=== PATIENT | female | born 1960 | race African-American/Black ===

== ENCOUNTER 2017-10-24 21:55 | Inpatient (IN) | payer OTHER ==
[~2017-10-24] VITALS: Ht 165.1 cm; Wt 60.8 kg
--- NOTE | 2017-10-24 21:55 | NUR ---
"SLIPPED AND FELL HEADING TO RESTROOM; MY CHEST/LT HAND AND HEAD HURT" DENIES KO. NAD NOTED, VSS, RESP EVEN AND UNLABORED, PT WAS PUT ON MONITOR, MD AT BS.
[2017-10-24] MEDS ORDERED: KETOROLAC TROMETHAMINE INJ 30 MG/ML VIAL ONE (22:17)
[2017-10-24 22:28] LABS: BASOPHILS % (AUTO) 0.5 % (0.0-2.0); HEMATOCRIT 38 % (33-45); HEMOGLOBIN 12.4 g/dL (11.5-14.8); LYMPHOCYTES # (AUTO) 3.1 /CMM (0.8-4.8); LYMPHOCYTES % (AUTO) 33.1 % (20.0-44.0); MEAN CORPUSCULAR HEMOGLOBIN 28 PG (26.0-33.0); MEAN CORPUSCULAR HGB CONC 33 g/dl (31.0-36.0); MEAN CORPUSCULAR VOLUME 84 fL (82-100); MONOCYTES # (AUTO) 0.7 /CMM (0.1-1.30); MONOCYTES % (AUTO) 7.8 % (2.0-12.0); NEUTROPHILS # (AUTO) 5.5 /CMM (1.8-8.9); NEUTROPHILS % (AUTO) 57.6 % (43.0-81.0); PLATELET COUNT (AUTO) 248 /CMM (150-450); RDW COEFFICIENT OF VARIATION 13.8 (11.5-15.0); WHITE BLOOD COUNT (AUTO) 9.5 K/uL (4.3-11.0)
[2017-10-24] MEDS ORDERED: KETOROLAC TROMETHAMINE INJ 30 MG/ML VIAL IV ONE (22:30)
[2017-10-24 22:42] LABS: CALCIUM, SERUM 9.5 mg/dL (8.5-10.1); CARBON DIOXIDE 23 mmol/L (21-32); CHLORIDE 98 mmol/L (98-107); CREATININE 1.3 mg/dL (0.6-1.3); GLUCOSE 242 mg/dL (74-106); POTASSIUM 3.2 mmol/L (3.5-5.1); SODIUM SERUM 130 mmol/L (136-145); UREA NITROGEN, BLOOD 32 mg/dL (7-18)
[2017-10-24 22:46] LABS: INR 0.96 (0.87-1.13)
[2017-10-24 22:51] LABS: TROPONIN I < 0.017 ng/mL (0.00-0.056)
--- NOTE | 2017-10-24 22:55 | NUR ---
Patient is resting comfortably in bed with eyes closed. Easily aroused. VSS
[2017-10-24 22:56] LABS: B-TYPE NATRIURETIC PEPTIDE 136 PG/ML (0-125)
--- NOTE | 2017-10-25 00:02 | NUR ---
report given to telephone order clerk room serviceadrian andino for sherry
--- NOTE | 2017-10-25 00:20 | NUR ---
PT STATES SHE IS UNABLE TO RECALL HER LIST OF MEDICATIONS SHE DID NOT BRING IT WITH HER.
--- NOTE | 2017-10-25 00:38 | NUR ---
pt transferred to 3w via [facility] acls protocol.
[2017-10-25] MEDS ORDERED: ONDANSETRON HCL/PF 4 MG/2 ML VIAL IVP PRN (01:00)
[2017-10-25] MEDS ORDERED: Z GUARD REMEDY 2 OZ OINT TP PRN (01:00)
[2017-10-25] MEDS ORDERED: HYDROCODONE/APAP 5/325MG 1 EACH TABLET PO PRN (01:00)
[2017-10-25] MEDS ORDERED: MAG HYDROX/AL HYDROX/SIMETH 30 ML UDC PO PRN (01:00)
[2017-10-25] MEDS ORDERED: ACETAMINOPHEN 325 MG TABLET PO PRN (01:00)
[2017-10-25] MEDS ORDERED: ZOLPIDEM TARTRATE 5 MG TABLET PO PRN (01:00)
[2017-10-25] MEDS ORDERED: MAGNESIUM HYDROXIDE 30 ML UDC PO PRN (01:00)
--- NOTE | 2017-10-25 01:15 | NUR ---
VETERINARY NURSE NOTES PT ARRIVED ONTO THE UNIT AT 0035 VIA GURNEY. PT COMPLAINS OF FALLING ON HER WAY TO THE BATHROOM AT @2000 AND CHEST PAIN. NO COMPLAINTS OF CHEST PAIN AT THIS TIME WILL CONTINUE TO MONITOR. 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 PT ALSO STATES THAT SHE HAS HAD "6 STROKES". PT TELE MONITORED NSR RATE OF 70. ALL PT BELONGINGS ACCOUNTED FOR AND DOCUMENT. PT ORIENTED TO THE USE OF THE CALL LIGHT. SAFETY PRECAUTIONS IN PLACE, BED IN LOWEST LOCKED POSITION, X2 SIDE RAILS UP, AND CALL LIGHT WITHIN REACH. WILL ENDORSE TO DAY SHIFT NURSE FOR CONTINUITY OF CARE.
[2017-10-25] MEDS ORDERED: ASPI-1169 PO (01:26)
[2017-10-25] MEDS ORDERED: CLOP75TA15 PO (01:26)
[2017-10-25] MEDS ORDERED: METO-356 PO (01:26)
[2017-10-25] MEDS ORDERED: TRAZ-147 PO (01:26)
[2017-10-25] MEDS ORDERED: LISI10TA5 PO (01:26)
[2017-10-25] MEDS ORDERED: ATOR20TA PO (01:26)
[2017-10-25] MEDS ORDERED: SERT50TA PO (01:26)
--- NOTE | 2017-10-25 01:30 | NUR ---
RN NOTES PT STATED HOME MEDICATIONS AND DOSE AMOUNTS. WILL UPDATE HOME MEDICATION RECONCILIATION AND INFORM DR BELTRÁN.
[2017-10-25] MEDS: IV NS 0.9% 1,000 ML IV PRN ×2 (02:09→15:56)
[2017-10-25] MEDS: MORPHINE SULFATE INJ 2 MG/ML DISP.SYRIN IV PRN ×2 (02:09→08:49)
--- NOTE | 2017-10-25 02:09 | NUR ---
RN NOTES PT IS COMPLAINING OF RIGHT EYE PAIN. PT REQUESTED PRN MORPHINE. WILL ADMINISTER AND CONTINUE TO MONITOR.
[2017-10-25 04:27] VITALS: BP 136/88
--- NOTE | 2017-10-25 04:30 | NUR ---
RN NOTES PAGED DR BELTRÁN FOR LAB VALUES: K-3.2 AND NA-130. AWAITING RESPONSE.
--- NOTE | 2017-10-25 05:03 | NUR ---
RN NOTES MESSAGED DR BELTRÁN VIA [employer] TEXT FOR LAB VALUES: K-3.2 AND NA-130. AWAITING RESPONSE.
--- NOTE | 2017-10-25 05:06 | NUR ---
RN NOTES SPOKE WITH DR BELTRÁN REGARDING LAB VALUES. PER DR BELTRÁN NO NEW ORDERS.
--- NOTE | 2017-10-25 05:15 | NUR ---
RN NOTES PT COMPLAINING OF GENERALIZED PAIN. PT REQUESTED PRN NORCO [phone]. WILL ADMINISTER AND CONTINUE TO MONITOR.
--- NOTE | 2017-10-25 06:43 | NUR ---
RN CLOSING NOTES PT RESTING IN BED. EASILY AROUSES. NO COMPLAINTS OF PAIN, DISTRESS OR SOB AT THIS TIME. NO COMPLAINTS OF CHEST PAIN. PT TELE MONITORED NSR RATE OF 70. PT HAS A LEFT AC #18 IV INTACT AND RUNNING NS @75ML/HR. SAFETY PRECAUTIONS IN PLACE, BED IN LOWEST LOCKED POSITION, X2 SIDE RAILS UP, AND CALL LIGHT WITHIN REACH. WILL ENDORSE TO DAY SHIFT NURSE FOR CONTINUITY OF CARE.
[2017-10-25 08:09] LABS: CHOLESTEROL 187 mg/dL (<200); HDL CHOLESTEROL 38 mg/dL (40-60); LDL 123 mg/dL (0-99); TRIGLYCERIDES 156 mg/dL (30-150)
[2017-10-25 08:11] LABS: TROPONIN I < 0.017 ng/mL (0.00-0.056)
[2017-10-25] MEDS: SERTRALINE HCL 50 MG TABLET PO SCH (08:30)
[2017-10-25] MEDS: CLOPIDOGREL BISULFATE 75 MG TABLET PO SCH (08:30)
[2017-10-25] MEDS: ATORVASTATIN 10 MG TABLET PO SCH (08:30)
[2017-10-25] MEDS: ASPIRIN 81 MG TAB.CHEW PO SCH (08:30)
[2017-10-25] MEDS: METOPROLOL SUCCINATE 25 MG TAB.SR.24H PO SCH (08:37)
[2017-10-25] MEDS: LISINOPRIL (10MG) 10 MG TABLET PO SCH (08:37)
--- NOTE | 2017-10-25 08:52 | NUR ---
HOTEL FRONT DESK AGENT NOTES PATIENT IN BED, BREAKFAST SERVED WITH FAIR APPETITE. BREATHING ROOM AIR WITH NO SOB. IVC IN LEFT AC WITH IVF NS INFUSING AT 75ML/HR. REPORTED RIGHT SHOULDER PAIN 8/10 NON RADIATING, MEDICATED WITH IV PRN MORPHINE, WILL REASSESS. CALL LIGHT WITHIN REACH. WILL CONT TO MONITOR.
[2017-10-25] MEDS ORDERED: ASPIRIN 81 MG TAB.CHEW PO SCH (09:00)
[2017-10-25] MEDS ORDERED: INSULIN REGULAR, HUMAN 100 UNIT/ML 3 ML VIAL SQ PRN (10:30)
[2017-10-25] MEDS ORDERED: DEXTROSE 50%-WATER 50 ML DISP.SYRIN IV PRN ×2 (10:30→16:30)
[2017-10-25 11:57] VITALS: BP 103/65
[2017-10-25] MEDS ORDERED: BLOOD SUGAR DIAGNOSTIC 1 EACH STRIP IN SCH (12:00)
[2017-10-25 13:48] LABS: THYROID STIMULATING HORMONE 0.954 uIU/mL (0.358-3.74)
[2017-10-25] MEDS ORDERED: POTASSIUM CHLORIDE 20 MEQ TAB.PRT.SR PO ONE (14:30)
--- NOTE | 2017-10-25 15:36 | NUR ---
PATIENT SUDDENLY AMBULATES AND WANTS TO SMOKE HOLDING BOX OF CIGARETTE, EDUCATED PATIENT, RISK AND BENEFITS EXPLAINED BUT INSISTED TO GO OUTSIDE HOSP TO SMOKE, REFUSED SMOKE CESSATION TEACHING. PATIENT STARTED WALKING THE HOSP HALLWAY AND THREATENS NURSES SHE WILL SMOKE INSIDE THE HOSP. IF STAFF DO NOT ALLOW HER TO SMOKE OUTSIDE, UNCONTROLLED AGITATION, SECURITY WAS CALLED AND ESCORT PATIENT TO GO BACK THE ROOM. PATIENT SMOKE INSIDE THE BATHROOM. NOTIFIED YOLIE ROMEO. RAVIN FROM [facility] WILL VISIT THE HOSP TO SPEAK TO THE PATIENT.
[2017-10-25] MEDS ORDERED: *INSULIN REGULAR(HUMULIN R)HUM 100 UNIT/ML VIAL SQ PRN (16:30)
[2017-10-25 16:45] VITALS: BP 100/63
--- NOTE | 2017-10-25 17:11 | NUR ---
PATIENT IN BED, REQUESTING PAIN MEDICATION MORPHINE OR NORCO. APPEARS COMFORTABLE, NO MOANING, NO FACIAL GRIMACE. PROVIDED MEDICATION INDICATION AND POSSIBLE SIDE EFFECT BUT PATIENT REFUSING TO LISTEN.
[2017-10-25] MEDS: BLOOD SUGAR DIAGNOSTIC 1 EACH STRIP VI SCH ×2 (17:25→21:36)
[2017-10-25] MEDS: INSULIN REGULAR, HUMAN 100 UNIT/ML 3 ML VIAL SQ PRN (17:29)
--- NOTE | 2017-10-25 18:20 | NUR ---
LIABILITY ANALYST CLOSING NOTES PATIENT IN BED, DINNER SERVED WITH GOOD APPETITE. BREATHING ON ROOM AIR WITH NO SOB. SINUS RHYTHM HR 74 ON THE TELE MONITOR, DENIES CHEST PAIN. IVC IN LEFT AC WITH IVF NS INFUSING AT 75ML/HR, LOW POTASSIUM 3.2 SUPPLEMENTED TODAY ORDERED. PER YOLIE ROMEO PATIENT CAN GO OUTSIDE TO SMOKE AFTER CLEARED BY CARDIOLOGY, AWAITING FOR CONSULT. CALL LIGHT WITHIN REACH. WILL ENDORSE TO ONCOMING RN.
--- NOTE | 2017-10-25 19:21 | NUR ---
MS RN OPENING NOTE RECEIVE PATIENT AWAKE IN BED, A/O X3, STABLE, NO FACIAL GRIMACING NOTED FOR PAIN. NO SOB OR DISTRESS NOTED, CALL LIGHT WITHIN REACH. SAFETY MEASURES IMPLEMENTED. WILL CONTINUE TO MONITOR THROUGHOUT SHIFT.
[2017-10-25 20:00] VITALS: BP 111/72
[2017-10-25] MEDS ORDERED: TRAZODONE 50 MG TABLET PO SCH (22:00)
--- NOTE | 2017-10-25 22:34 | NUR ---
Paged hospitalist spoke to ms. santiago relayed to her per pt doesnt want to go home right now pt wants to go home tomorrow morning ms. jonn chiang dc pt at 2009 late discharge pt sleepy per jorge she will text jonn chiang to inform her.
--- NOTE | 2017-10-25 22:49 | NUR ---
CALLED RAVIN GRADUATE INTERN OF [facility] MULTIPLE TIMES NOT ANSWERING LEFT A MESSAGE
--- NOTE | 2017-10-25 23:19 | NUR ---
SPOKE TO MS. BILL ROMEO RELAYED THAT THE [facility] IS NOT ANSWERING [phone] LEFT A MESSAGE CALLED MULTIPLE TIMES B&C. PER BILL SHE WILL CALL THE [facility]
--- NOTE | 2017-10-25 23:21 | NUR ---
CALLED IMPROVEMENT SPEC SPOKE TO MS. FREDDIE PAYNE RELAYED THAT MSAngel ROMEO FORCING THE PT TO GO HOME BUT [facility] NOT ANSWERING AWAITING CALL BACK LEFT A MESSAGE, CALLED MULTIPLE TIMES. PER MS. FRAZIER WE CANNOT DISCHARGE PT IN UNSAFE CONDITION PER PROTOCOL. CHARGE NURSE AWARE. PT WANTS TO GO HOME TOMORROW IN THE MORNING.
[2017-10-26] VITALS: BP 110/65
[2017-10-26 00:30] VITALS: BP 110/65
[2017-10-26 00:35] VITALS: BP 110/65
[2017-10-26] MEDS: BLOOD SUGAR DIAGNOSTIC 1 EACH STRIP VI SCH (05:43)
[2017-10-26] MEDS: INSULIN REGULAR, HUMAN 100 UNIT/ML 3 ML VIAL SQ PRN (05:45)
--- NOTE | 2017-10-26 06:07 | NUR ---
CALLED AGAIN RAVIN SENIOR CHEMICAL ENGINEER OF [facility] 3 TIMES UNABLE TO PICK MY CALLS CHARGE NURSE AWARE CANNOT D/C UNSAFE FOR THE PT
--- NOTE | 2017-10-26 06:09 | NUR ---
MS RN CLOSING NOTES IN BED ASLEEP AND EASILY AWAKEN, NO COMPLAINTS OF PAIN, DISTRESS OR SOB AT THIS TIME. NO COMPLAINTS OF CHEST PAIN. NURSING CARE RENDERED. NEEDS ATTENDED, AWAITING D/C. SAFETY PRECAUTIONS IN PLACE, BED IN LOWEST LOCKED POSITION, X2 SIDE RAILS UP, AND CALL LIGHT WITHIN REACH. WILL ENDORSE TO DAY SHIFT NURSE FOR CONTINUITY OF CARE.
--- NOTE | 2017-10-26 06:31 | NUR ---
RAVIN CALLED BACK AND REQUESTED IF THE PATIENT CAN COME AFTER 8 AM CHARGE NURSE AWARE RAVIN UNABLE TO SENIOR ANIMAL TRAINER PATIENT PATIENT REFUSED TO BE CHANGE NOW DESPITE AND EXPLAINING RISKS AND BENEFITS ASKED MULTIPLE TIMES PT REFUSED, PT ACCIDENTALLY PEE IN THE BED
[2017-10-26] MEDS ORDERED: PANTOPRAZOLE 40 MG TABLET.DR PO SCH (07:30)
--- NOTE | 2017-10-26 07:30 | NUR ---
MS RN NOTES PATIENT RECEIVED RESTING INSIDE ROOM, AWAKE, ALERT AND ORIENTED. VERBALLY RESPONSIVE AND RESPONDS TO VERBAL AND TACTILE STIMULI. BREATHING EVEN AND UNLABORED. NO SOB OR ACUTE DISTRESS NOTED AT THIS TIME. DISCUSSED WITH PATIENT DISCHARGE PLAN FOR TODAY AND PATIENT VERBALIZED THAT ITS OK FOR HER TO GO IN THE MORNING AFTER 0800. WILL CONTINUE TO MONITOR. BED LOCKED AND IN LOW POSITION. BILATERAL UPPER SIDE RAILS UP AND LOCKED. CALL LIGHT WITHIN EASY REACH
[2017-10-26] MEDS: CLOPIDOGREL BISULFATE 75 MG TABLET PO SCH (08:51)
[2017-10-26] MEDS: LISINOPRIL (10MG) 10 MG TABLET PO SCH (08:51)
[2017-10-26] MEDS: ATORVASTATIN 10 MG TABLET PO SCH (08:51)
[2017-10-26] MEDS: ASPIRIN 81 MG TAB.CHEW PO SCH (08:51)
[2017-10-26 08:52] VITALS: BP 121/79
[2017-10-26] MEDS: METOPROLOL SUCCINATE 25 MG TAB.SR.24H PO SCH (08:52)
[2017-10-26] MEDS: SERTRALINE HCL 50 MG TABLET PO SCH (08:52)
[2017-10-26] MEDS ORDERED: NICOTINE PATCH (14MG) 14 MG PATCH.TD24 TD SCH (09:00)
--- NOTE | 2017-10-26 11:00 | NUR ---
MS RN NOTES PLACED CALL TO [facility]' AND SPOKE WITH RAVIN ([phone]) MADE AWARE THAT PATIENT IS COMING BACK, REPORT GIVEN,
--- NOTE | 2017-10-26 11:25 | NUR ---
MS RN NOTES PATIENT FOR DISCHARGE TODAY. DISCHARGE INSTRUCTIONS AND EDUCATION GIVEN AND VERBALIZED UNDERSTANDING. ALL BELONGINGS COMPLETE, PATIENT DENIES ANY MISSING BELONGING OR INVENTORY. IV REMOVED WITH MINIMAL BLEEDING NOTED, PRESSURE DRESSING PLACED. PATIENT PROVIDED WITH TAXI VOUCHER FOR DISCHARGE. PATIENT ASSISTED OUTSIDE UNIT TO PARKING LOT. LEFT VIA [facility]AXI TO [facility] AND CARE, ADDRESS: [id number] [place] [address]. MD MADE AWARE OF DISCHARGE.
== END 2017-10-26 10:15 | disposition home or self-care (01) | DRG 198 ==
LOC: ER 21:56 → TELE 10-25 00:08 → MED 10-26 02:52
PROVIDERS: ADMIT Internal Medicine; ATTEND Internal Medicine
DX: R07.89 Other chest pain (principal); I25.10 Atherosclerotic heart disease of native coronary artery without angina pectoris; E87.1 Hypo-osmolality and hyponatremia; I10 Essential (primary) hypertension; E11.9 Type 2 diabetes mellitus without complications; E78.5 Hyperlipidemia, unspecified; E87.6 Hypokalemia; I69.954 Hemiplegia and hemiparesis following unspecified cerebrovascular disease affecting left non-dominant side; Z95.5 Presence of coronary angioplasty implant and graft; W06.XXXA Fall from bed, initial encounter; Y92.193 Bedroom in other specified residential institution as the place of occurrence of the external cause; Z79.82 Long term (current) use of aspirin; F32.9 Major depressive disorder, single episode, unspecified; F17.200 Nicotine dependence, unspecified, uncomplicated; Z71.6 Tobacco abuse counseling
CPT/HCPCS: 36415; 71045-TC; 80048-TC; 80061-TC; 82746; 82962-TC; 83880; 84443-TC; 84484-TC; 85025-TC; 85730-TC; 87081-TC; 93307-TC; A4606; J1815; J1885; J2270; J7030; Z7610

== ENCOUNTER 2017-12-22 17:45 | Emergency (ER) | payer OTHER ==
[~2017-12-22] VITALS: Ht 162.6 cm; Wt 67.6 kg
[~2017-12-22 17:45] MED LIST: ASPI-1169 PO; ATOR20TA PO; CLOP75TA15 PO; LISI10TA5 PO; METO-356 PO; SERT50TA PO; TRAZ-214 PO
--- NOTE | 2017-12-22 17:45 | NUR ---
PT BIBRA FROM [facility] TO ER BED 09. HERE FOR WITNESSED SEIZURE WHILE SITTING DOWN. PT IS AAOX4 BUSINESS ANALYSIS ANALYST. NO ORAL TRAUMA NOTED. PLACED ON MONITOR, PLACED ON SEIZURE PRECAUTION. PT C/O HEADACHE AND NAUSEA. NO ACTIVE VOMITING. PT STATES LAST SEIZURE WAS 15 YEARS AGO. NO CURRENT SEIZURE MEDS. AWAITING MD HAUSER.
--- NOTE | 2017-12-22 17:56 | NUR ---
DR SURESH AT BEDSIDE FOR EVAL.
[2017-12-22] MEDS ORDERED: HYDROCODONE/APAP 5/325MG 1 EACH TABLET PO ONE ×2 (18:00→19:30)
[2017-12-22] MEDS ORDERED: ONDANSETRON HCL/PF 4 MG/2 ML VIAL IVP ONE (18:00)
[2017-12-22] MEDS ORDERED: LEVETIRACETAM (500MG) 500 MG in IV NS 0.9% 100 ML IV SCH (18:00)
--- NOTE | 2017-12-22 18:03 | NUR ---
IV LINE STARTED BLOOD DRAWN AND SENT TO LAB.
[2017-12-22] MEDS ORDERED: HYDROCODONE/APAP 5/325MG 1 EACH TABLET ONE ×2 (18:05→19:27)
[2017-12-22] MEDS ORDERED: ONDANSETRON HCL/PF 4 MG/2 ML VIAL ONE (18:05)
[2017-12-22 18:06] LABS: BASOPHILS # (AUTO) 0.3 /CMM (0.0-0.2); BASOPHILS % (AUTO) 2.9 % (0.0-2.0); HEMATOCRIT 32 % (33-45); HEMOGLOBIN 10.3 g/dL (11.5-14.8); LYMPHOCYTES # (AUTO) 2.9 /CMM (0.8-4.8); LYMPHOCYTES % (AUTO) 31.4 % (20.0-44.0); MEAN CORPUSCULAR HEMOGLOBIN 27 PG (26.0-33.0); MEAN CORPUSCULAR HGB CONC 32 g/dl (31.0-36.0); MEAN CORPUSCULAR VOLUME 85 fL (82-100); MONOCYTES # (AUTO) 0.6 /CMM (0.1-1.30); NEUTROPHILS # (AUTO) 5.2 /CMM (1.8-8.9); NEUTROPHILS % (AUTO) 57.7 % (43.0-81.0); PLATELET COUNT (AUTO) 301 /CMM (150-450); RDW COEFFICIENT OF VARIATION 14.9 (11.5-15.0); RED BLOOD CELL COUNT(AUTO) 3.81 MIL/uL (4.0-5.2); WHITE BLOOD COUNT (AUTO) 9.2 K/uL (4.3-11.0)
[2017-12-22 18:16] LABS: CALCIUM, SERUM 9.4 mg/dL (8.5-10.1); CREATININE 1.2 mg/dL (0.6-1.3)
[2017-12-22 18:22] LABS: ALBUMIN 3.8 g/dL (3.4-5.0); BILIRUBIN,TOTAL 0.1 mg/dL (0.2-1.0); TOTAL PROTEIN, SERUM 7.6 g/dL (6.4-8.2)
--- NOTE | 2017-12-22 18:37 | NUR ---
Note undone in EDM - 12/22/17 at 1842 by CHETAN PT BIBRA FROM [facility] TO ER BED 09. HERE FOR WITNESSED SEIZURE WHILE SITTING DOWN. PT IS AAOX4 ASBESTOS HANDLER. NO ORAL TRAUMA NOTED. PLACED ON MONITOR, PLACED ON SEIZURE PRECAUTION. PT C/O HEADACHE AND NAUSEA. NO ACTIVE VOMITING. PT STATES LAST SEIZURE WAS 15 YEARS AGO. NO CURRENT SEIZURE MEDS. AWAITING MD HAUSER.
[2017-12-22] MEDS ORDERED: GABA-532 PO (18:45)
[2017-12-22] MEDS ORDERED: ASPI-1152 PO (18:45)
[2017-12-22] MEDS ORDERED: INSU100I26 SQ (18:45)
[2017-12-22] MEDS ORDERED: INSU100I34 SQ (18:45)
--- NOTE | 2017-12-22 19:06 | NUR ---
REPORT TO GILBERTO JIMENEZ FOR EDEN
--- NOTE | 2017-12-22 19:24 | NUR ---
PT RESTING COMFORTABY WATCHING TV. VSS. NAD. STABLE CONDITION. WILL CONTINUE TO MONITOR.
--- NOTE | 2017-12-22 19:51 | NUR ---
Patient discharged to home in stable condition. Written and verbal after care instructions given. Patient verbalizes understanding of instruction. IV removed. Catheter intact and site benign. Pressure and 4x4 applied to site. No bleeding noted. AMBULATED WITH STEADY GAIT. INSTRUCTED NOT TO DRIVE OR OPERATE HEAVY MACHINERY
[2017-12-22 19:53] VITALS: BP 112/78
== END 2017-12-22 20:09 | disposition home or self-care (01) ==
LOC: ER 17:48
DX: G40.909 Epilepsy, unspecified, not intractable, without status epilepticus (principal); F32.9 Major depressive disorder, single episode, unspecified; E11.9 Type 2 diabetes mellitus without complications; H54.40 Blindness, one eye, unspecified eye; Z86.73 Personal history of transient ischemic attack (TIA), and cerebral infarction without residual deficits; I25.10 Atherosclerotic heart disease of native coronary artery without angina pectoris; Z79.82 Long term (current) use of aspirin; Z79.4 Long term (current) use of insulin
CPT/HCPCS: 36415; 80048-TC; 80076-TC; 85025-TC; J1953; J2405; J7030